=== PATIENT | female | born 1995 | race African-American/Black ===

== ENCOUNTER 2017-12-24 12:04 | Emergency (ER) | payer BC, OTHER ==
[~2017-12-24] VITALS: Ht 162.6 cm; Wt 86.0 kg
[2017-12-24 12:06] VITALS: BP 135/88
[2017-12-24] MEDS ORDERED: ACETAMINOPHEN 500MG TABLET PO ONE (14:15)
== END 2017-12-24 14:41 | disposition home or self-care (01) ==
LOC: ER 12:29
DX: M54.2 Cervicalgia (principal); M25.562 Pain in left knee; V47.5XXA Car driver injured in collision with fixed or stationary object in traffic accident, initial encounter; Y93.89 Activity, other specified; Y92.488 Other paved roadways as the place of occurrence of the external cause; Y99.8 Other external cause status
CPT/HCPCS: 72125; 73562; 81025; 99284